=== PATIENT | female | born 1995 | race African-American/Black ===

== ENCOUNTER 2017-01-08 03:56 | Emergency (ER) | payer OTHER ==
[~2017-01-08] VITALS: Ht 162.6 cm; Wt 140.0 kg
[~2017-01-08 03:56] MED LIST: METR1GEL2 PV
[2017-01-08 03:59] VITALS: BP 136/75; PULSE 107; RESP 20; TEMP 97.7; O2SAT 98
[2017-01-08] MEDS ORDERED: ALBUAER3 INH (04:12)
[2017-01-08] MEDS ORDERED: SODIUM CHLOR 0.9% 1000 ML INJ 1,000 ML IV SCH (04:56)
[2017-01-08] MEDS ORDERED: SODIUM CHLORIDE 0.9% FLUSH 5 ML FLUSH IVF PRN (05:00)
[2017-01-08 05:14] LABS: AUTOMATED NEUTROPHIL # 6.1 TH/MM3 (1.8-7.7); BASOPHIL # 0.1 TH/MM3 (0-0.2); BASOPHIL % 0.6 % (0.0-2.0); EOSINOPHIL # 0.5 TH/MM3 (0-0.4); EOSINOPHIL % 4.8 % (0.0-4.0); HEMATOCRIT 36.4 % (35.0-46.0); MEAN CELL VOLUME 77.8 FL (80.0-100.0); MEAN CORPUSCULAR HEMOGLOBIN 24.8 PG (27.0-34.0); MEAN CORPUSCULAR HGB CONC 31.8 % (32.0-36.0); MONO % 6.5 % (0.0-8.0); NEUT % 53.1 % (16.0-70.0); PLATELET COUNT 278 TH/MM3 (150-450); RED BLOOD COUNT 4.68 MIL/MM3 (4.00-5.30); RED CELL DISTRIBUTION WIDTH 15.3 % (11.6-17.2); WHITE BLOOD COUNT 11.5 TH/MM3 (4.0-11.0)
[2017-01-08 05:15] LABS: HEMO FLAGS AUTO DIFF
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
[2017-01-08 05:32] LABS: APTT (PATIENT) 23.6 SEC (24.3-30.1); INTERNATIONAL NORMALIZED RATIO 0.9 RATIO; PROTHROMBIN TIME - PATIENT 10.1 SEC (9.8-11.6)
[2017-01-08 05:47] LABS: BICARBONATE 26.3 MEQ/L (21.0-32.0); POTASSIUM 3.5 MEQ/L (3.5-5.1)
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
[2017-01-08] MEDS ORDERED: IOHEXOL 350 MG/ML 10 ML VIAL (for RAD DIAG) IV ONE (06:38)
[2017-01-08 06:39] LABS: SCAN/DIFF AUTO DIFF CONFIRMED
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
[2017-01-08] MEDS ORDERED: HYDR-3533 PO (07:23)
[2017-01-08] MEDS ORDERED: oxyCODONE/ACETAMINOPHEN 5 MG/325 MG TAB PO ONE (07:45)
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
--- NOTE | 2017-01-08 15:49 | EKG ---
Date Performed: 01/08/2017 Time Performed: 06:14:40 PTAGE: 21 years EKG: Sinus rhythm NORMAL ECG PREVIOUS TRACING : 11/28/2007 21.43 Compared to prior tracing no significant change DOCTOR: Irene Arauz Interpretating Date/Time 01/08/2017 15:47:32
== END 2017-01-08 08:33 | disposition home or self-care (01) ==
LOC: NEPC 03:56
DX: S20.219A Contusion of unspecified front wall of thorax, initial encounter (principal); S06.0X1A Concussion with loss of consciousness of 30 minutes or less, initial encounter; S32.402A Unspecified fracture of left acetabulum, initial encounter for closed fracture; I10 Essential (primary) hypertension; V47.1XXA Car passenger injured in collision with fixed or stationary object in nontraffic accident, initial encounter; Z72.0 Tobacco use
CPT/HCPCS: 70450; 71010; 71260; 72125; 73502; 73552; 74177; 80048; 84703; 85025; 85610; 85730; 93005; 96360; 96361; 99285; E0113; J7030; L0150; Q9967

== ENCOUNTER 2017-01-16 04:39 | Emergency (ER) | payer OTHER ==
[~2017-01-16] VITALS: Ht 162.6 cm; Wt 118.0 kg
[~2017-01-16 04:39] MED LIST changes: +ALBUAER3 INH; +HYDR-3533 PO; -METR1GEL2 PV
[2017-01-16 04:43] VITALS: BP 142/83; PULSE 102; RESP 18; TEMP 97.6; O2SAT 98
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
--- NOTE | 2017-01-16 05:37 | RADRPT ---
EXAM DATE/TIME: 01/16/2017 05:24 [facility] COMPARISON: CHEST SINGLE AP, January 08, 2017, 7:38. INDICATIONS : Chest pain. MEDICAL HISTORY : None. SURGICAL HISTORY : None. ENCOUNTER: Initial ACUITY: 1 day PAIN SCORE: 7/10 LOCATION: Bilateral chest FINDINGS: A single view of the chest demonstrates the lungs to be symmetrically aerated without evidence of mas s, infiltrate or effusion. The cardiomediastinal contours are unremarkable. Osseous structures are intact. CONCLUSION: Normal examination. Eric Hope Jr., MD on January 16, 2017 at 5:36 Board Certified Radiologist. This report was verified electronically.
[2017-01-16] MEDS ORDERED: ZITHTAB PO (05:42)
[2017-01-16] MEDS ORDERED: MOBI15TA PO (05:42)
[2017-01-16 06:08] VITALS: BP 138/87
== END 2017-01-16 06:12 | disposition home or self-care (01) ==
LOC: NEPE 04:39
DX: J40 Bronchitis, not specified as acute or chronic (principal); B34.9 Viral infection, unspecified; I10 Essential (primary) hypertension; Z72.0 Tobacco use
CPT/HCPCS: 71010; 99283